=== PATIENT | male | born 1955 | race Caucasian/White ===

== ENCOUNTER 2019-09-01 15:29 | Emergency (ER) | payer OTHER, MEDICARE ==
[~2019-09-01] VITALS: Ht 172.7 cm; Wt 84.1 kg
[2019-09-01 15:35] VITALS: Ht 172.7 cm; Wt 84.1 kg
[2019-09-01] MEDS ORDERED: VENTOLIN HFA [SP8 GM INH (15:36)
[2019-09-01] MEDS ORDERED: IBUPROFEN800 MG PO (16:58)
[2019-09-01] MEDS ORDERED: CYCLOBENZAPRINE10 MG PO (16:58)
[2019-09-01] MEDS ORDERED: PERCOCET 5-3251 TAB PO (16:58)
[2019-09-01 17:45] VITALS: BP 110/74
== END 2019-09-01 17:45 | disposition home or self-care (01) ==
LOC: D.ER 15:29
DX: S39.012A Strain of muscle, fascia and tendon of lower back, initial encounter (principal); V29.40XA Motorcycle driver injured in collision with unspecified motor vehicles in traffic accident, initial encounter; Y93.9 Activity, unspecified; Y92.9 Unspecified place or not applicable; J45.909 Unspecified asthma, uncomplicated; S33.5XXA Sprain of ligaments of lumbar spine, initial encounter